=== PATIENT | male | born 1930 | race Caucasian/White ===

== ENCOUNTER 2019-11-14 12:45 | Inpatient (IN) ==
--- OUTSIDE RECORDS SUMMARY | 2019-11-14 12:48 | External Medical Summary | Continuity of Care Document ---
:1930 Author Name Annika Knutson, Provider Address Unavailable Unavailable , Care Team Providers Name Role Phone Unavailable Unavailable Unavailable YANET ALANIZ Unavailable Unavailable Unavailable Unavailable Unavailable Problems Diverticulosis of colon (562.10) (K57.30) COPD (chronic obstructive pulmonary disease) (496) (J44.9) Colostomy Care Requirement Allergies and Adverse Reactions No Known Drug Allergies (Allergy) Medications Aspirin 81 MG TABS; TAKE 1 TABLET DAILY. , M.D. Start: 30-Aug-2015 Refills: 0 Tamsulosin HCl - 0.4 MG Oral Capsule; TAKE 1 CAPSULE Bedtime , M.D. Start: 30-Aug-2015 Quantity: 30 Refills: 11 Propranolol HCl ER 60 MG Oral Capsule Extended Release 24 Ho ur; daily , M.D. Start: 30-Aug-2015 Refills: 0 Pantoprazole Sodium 40 MG Oral Tablet Delayed Release; TAKE 1 TABLET DAILY. , M.D. Start: 30-Aug-2015 Refills: 0 Allopurinol 100 MG Oral Tablet; one pill every other day , M .D. Start: 30-Aug-2015 Refills: 0 Vitamin D 1000 UNIT TABS; TAKE 1 TABLET DAILY. , M.D. Start: 30-Aug-2015 Refills: 0 Vitamin B12 100 MCG Oral Tablet; TAKE 1 TABLET DAILY DIRE CTED. , M.D. Start: 30-Aug-2015 Refills: 0 Proventil HFA 108 (90 Base) MCG/ACT Inha lation Aerosol Solution; INHALE 1 PUFF EVERY 6 HOURS , M.D. Start: 30-Aug-2015 Refills: 0 Asmanex HFA 100 MCG/ACT Inhalation Aerosol; One puff two tabitha es a day , M.D. Start: 30-Aug-2015 Refills: 0 Procedures Colostomy Care Requirement History of Neuroplasty Decompression Median Status: Completed Nerve At Carpal Tunnel History of Cataract Surgery Status: Comp leted History of Arthroscopy Knee Left Status: Completed History of Laparoscopy (Diagnostic) Stat us: Completed 21-Oct-2015 0:00 History of Laparoscopic Lysis Of Intestinal Status: Completed 21-Oct-2015 0:00 Adhesions History of Colostomy Closure Status: Com pleted 21-Oct-2015 0:00 History of Partial Colectomy Status: Com pleted 21-Oct-2015 0:00 History of Colon Surgery Status: Complet ed Immunizations Immunizations not documented Family History Sister Family history of diabetes mellitus (V18.0) (Z83.3) Status: Active Social History - Smoking Status Former smoker Plan of Treatment Planned Observations Planned Goals not documented Results No Known Results Results not documented
--- OUTSIDE RECORDS SUMMARY | 2019-11-14 12:49 | External Medical Summary | Continuity of Care Document ---
:1930 Author Name Annika Knutson, Provider Address Unavailable Unavailable , Care Team Providers Name Role Phone Unavailable Unavailable Unavailable YANET ALANIZ Unavailable Unavailable Unavailable Unavailable Unavailable Problems Colostomy Care Requirement COPD (chronic obstructive pulmonary disease) (496) (J44.9) Diverticulosis of colon (562.10) (K57.30) Allergies and Adverse Reactions No Known Drug Allergies (Allergy) Medications Proventil HFA 108 (90 Base) MCG/ACT Inha lation Aerosol Solution; INHALE 1 PUFF EVERY 6 HOURS , M.D. Start: 30-Aug-2015 Refills: 0 Asmanex HFA 100 MCG/ACT Inhalation Aerosol; One puff two tabitha es a day , M.D. Start: 30-Aug-2015 Refills: 0 Allopurinol 100 MG Oral Tablet; one pill every other day , M .D. Start: 30-Aug-2015 Refills: 0 Pantoprazole Sodium 40 MG Oral Tablet Delayed Release; TAKE 1 TABLET DAILY. , M.D. Start: 30-Aug-2015 Refills: 0 Propranolol HCl ER 60 MG Oral Capsule Extended Release 24 Ho ur; daily , M.D. Start: 30-Aug-2015 Refills: 0 Tamsulosin HCl - 0.4 MG Oral Capsule; TAKE 1 CAPSULE Bedtime , M.D. Start: 30-Aug-2015 Quantity: 30 Refills: 11 Aspirin 81 MG TABS; TAKE 1 TABLET DAILY. , M.D. Start: 30-Aug-2015 Refills: 0 Vitamin B12 100 MCG Oral Tablet; TAKE 1 TABLET DAILY DIRE CTED. , M.D. Start: 30-Aug-2015 Refills: 0 Vitamin D 1000 UNIT TABS; TAKE 1 TABLET DAILY. , M.D. Start: 30-Aug-2015 Refills: 0 Procedures [...]
[2019-11-14 13:14] LABS: Basophils # (auto) 0.02 K/uL (0-0.2); Basophils % (auto) 0.2 %; Eosinophils # (auto) 0.14 K/uL (0-0.5); Eosinophils % (auto) 1.6 %; Hematocrit (blood only) 41.9 % (42-52); Hemoglobin 13.7 g/dL (14.0-18.0); Immature Granulocytes # (auto) 0.03 K/uL (0.00-0.02); Immature Granulocytes % (auto) 0.3 %; Lymphocytes # (auto) 2.01 K/uL (1.2-3.4); Lymphocytes % (auto) 23.4 %; Mean Corpuscular Hemoglobin 31.8 pg (25-34); Mean Corpuscular Hgb Conc 32.7 g/dL (32-36); Mean Corpuscular Volume 97.2 fL (80-100); Mean Platelet Volume 10.2 fL (7.4-10.4); Monocytes % (auto) 10.5 %; Neutrophils # (auto) 5.48 K/uL (1.4-6.5); Platelet Count 204 K/uL (130-400); RDW Standard Deviation 50.1 fL (36.4-46.3); Red Blood Count 4.31 M/uL (4.7-6.1); White Blood Count 8.58 K/uL (4.8-10.8)
--- NOTE | 2019-11-14 13:14 | XRay Report ---
XR chest 1V portable CLINICAL HISTORY: bradycardia COMPARISON STUDY: 11/14/2019 FINDINGS: The bones soft tissues and hemidiaphragms are normal. The cardiomediastinal silhouette is n ormal. The lungs are clear. The pulmonary vasculature is normal. IMPRESSION: Negative chest. ACT 112: Negative or not required by law. The above report was generated using voice recognition software. It may contain grammatical, syntax or spelling errors. Electronically signed by: Gordo Huerta M.D. 11/14/2019 1:13 PM
[2019-11-14 13:24] LABS: Partial Thromboplastin Ratio 0.9; Partial Thromboplastin Time 25.5 Seconds (21.0-31.0); Prothrombin Time 10.3 Seconds (9.0-12.0)
[2019-11-14 13:34] LABS: Alanine Aminotransferase 21 U/L (12-78); Albumin Level 3.6 gm/dl (3.4-5.0); Aspartate Aminotransferase 17 U/L (15-37); BUN Creatinine Ratio 16.1 (10-20); Blood Urea Nitrogen 24 mg/dl (7-18); Calcium 9.2 mg/dl (8.5-10.1); Carbon Dioxide 26 mmol/L (21-32); Chloride 107 mmol/L (98-107); Creatinine Clr Calc Pharmacy 36.8 ml/min; Est GFR (African American) 47.8; Est GFR (Non-African American) 41.3; Glucose 90 mg/dl (70-99); Potassium 4.5 mmol/L (3.5-5.1); Sodium 136 mmol/L (136-145)
[2019-11-14 13:45] LABS: Albumin Globulin Ratio 1.1 (0.9-2); Alkaline Phosphatase 100 U/L (45-117); Bilirubin,Total 0.6 mg/dl (0.2-1); Globulin 3.3 gm/dl (2.5-4.0); Total Protein 6.9 gm/dl (6.4-8.2); Troponin I < 0.015 ng/ml (0-0.045)
--- NOTE | 2019-11-14 14:00 | History & Physical Report ---
Date of Service November 14, 2019 Assessment & Plan (1) Second degree AV block: Stat echo has been ordered and is currently pending. Labs including hemoglobin and coagulation panel have come back and are stable. Per history, it sounds as if the patient may have been in atrial ventricular blo ck with significant bradycardia for at least a month. Patient has already been seen by Dr. Calixto of EP as an outpatient, and was referred to the emergency room, dual-chamber permanent pacemaker tentatively planned today pending echo results. (2) Hypothyroidism: Patient is not on thyroid supplementation as an outpatient. His TSH is mildly elevated at 7.59, free T4 currently pending, low-dose thyroid supplementation may be necessary. I do not think that hypothyroidism is the cause of his AV block, I think he has underlying conduction system disease, I do not think his AV block is a process that can be corrected with treating his relatively mild elevation in TSH. (3) HTN (hypertension): Was hypertensive on arrival to the emergency department, blood pressure has improved to over range of 168/64. He is on propranolol as an outpatient perhaps related to a history of essential tremor but I am not sure. After pacemaker is in place, will determine best next medication, perhaps to be placed back on his previous propranolol dose, versus perhaps adding amlodipine. DVT prophylaxis: Pacemaker today, will readdress pharmacologic DVT prophylaxis if necessary on 11/15/2019. Dr Spicer will be rounding for out service on 11/15/19. History of Present Illness Primary Care Provider: Kalen Bueno Allyssa Baeza is an 89 year old male with a past medical history of hypertension, COPD, and essential tremor who presented to the outpatient cardiology clinic at [facility] for cardiology consultation due to bradycardia. He states that he began to feel lightheaded and dizzy a few mo nths ago. He has had episodes of feeling as if he may pass out, but has not had any david syncope. He was recently seen by his primary care provider, Dr. Bueno and was found to be bradycardic. His dose of propranolol was apparently reduced from 60 mg daily to 40 mg daily but he had ongoing symptoms. Last week his primary care provider reduce his propranolol to 20 mg daily. Today he presented in the cardiology clinic and was seen by Dr. Tucker Ocampo and was found to have second-degree AV block with 2-1 AV conduction, and a ventricular rate of 33 bpm. The patient denies any history of coronary heart disease. No past stroke. Allergies Allergy/AdvReac Type Severity Reaction Status Date / Time hydrocodone AdvReac Unknown DIZZINESS Verified 11/14/19 13:11 Home Medications Home Medications Medication Instructions Recorded Confirmed Type allopurinol 100 mg PO Q2D 11/14/19 11/14/19 History aspirin [Aspir-81] 81 mg PO QAM 11/14/19 11/14/19 History cholecalciferol (vitamin D3) 1,000 unit PO QAM 11/14/19 11/14/19 History [Vitamin D3] cyanocobalamin (vitamin B-12) 50 mcg PO QAM 11/14/19 11/14/19 History [Vitamin B-12] ipratropium-albuterol [Combivent 1 puff INHALATION QID 11/14/19 11/14/19 History Respimat] mometasone [Asmanex Twisthaler] 1 inh INHALATION BID 11/14/19 11/14/19 History pantoprazole 40 mg PO QAM 11/14/19 11/14/19 History propranolol 20 mg PO QAM 11/14/19 11/14/19 History tamsulosin 0.4 mg PO QAM 11/14/19 11/14/19 History vit C,H-Iz-bnzki-lutein-zeaxan 1 tab PO BID 11/14/19 11/14/19 History [PreserVision AREDS-2] Past Med/Surg History Medical History (Updated 11/14/19 @ 13:56 by Davi Isabel DO) COPD (chronic obstructive pulmonary disease) Gout HTN (hypertension) Surgical History (Updated 11/14/19 @ 13:50 by Davi Isabel DO) Status post cholecystectomy Social History (Updated 11/14/19 @ 13:51 by Daiv Isabel DO) Preferred Language: Vietnamese marital status: / Feels Safe at Home: Yes Smoking Status: Never smoker Review of Systems Review of Systems: All systems reviewed & are unremarkable except as noted in HPI & below Cardiovascular: as per Subjective / HPI, + dyspnea on exertion and + syncope (near syncope); no chest pain at rest and no edema Physical Exam Physical Exam: Temp Pulse Resp BP Pulse Ox 36.4 C L 30 L 10 L 168/64 H 98 11/14/19 12:49 11/14/19 13:30 11/14/19 13:20 11/14/19 13:20 11/14/19 13:30 Constitutional: WD/WN, vitals as above Respiratory: normal respiratory effort, lungs clear to auscultation Cardiovascular: Rate/Rhythm: + bradycardic Extremities: no edema Gastrointestinal (Abdomen): normal bowel sounds, soft, nontender, no hepatosplenomegaly Skin: no rashes, warm and dry Neurologic: PERRL, EOMI, accommodation nl, no face palsy, no dysarthria Results & Data Vital Signs (Past 12 Hours) Vital Signs Temp Pulse Pulse Resp BP BP Pulse Ox 11/14/19 13:30 30 L 98 11/14/19 13:20 31 L 10 L 168/64 H 97 11/14/19 13:19 31 L 168/64 H 98 11/14/19 13:15 43 L 93 11/14/19 13:05 98 11/14/19 13:04 33 L 92 11/14/19 13:03 32 L 12 193/76 H 92 11/14/19 13:02 33 L 193/76 H 11/14/19 12:49 36.4 C L 34 L 71 H 98 Laboratory Results Temp Pulse Resp BP Pulse Ox 36.4 C L 30 L 10 L 168/64 H 98 11/14/19 12:49 11/14/19 13:30 11/14/19 13:20 11/14/19 13:20 11/14/19 13:30 Cardiac Enzymes 11/14/19 Range/Units 13:05 AST 17 (15-37) U/L Troponin I < 0.015 (0-0.045) ng/ml Coagulation 11/14/19 Range/Units 13:05 PT 10.3 (9.0-12.0) Seconds APTT 25.5 (21.0-31.0) Seconds CBC 11/14/19 Range/Units 13:05 WBC 8.58 (4.8-10.8) K/uL RBC 4.31 L (4.7-6.1) M/uL Hgb 13.7 L (14.0-18.0) g/dL Hct 41.9 L (42-52) % Plt Count 204 (130-400) K/uL Neut # (Auto) 5.48 (1.4-6.5) K/uL Lymph # (Auto) 2.01 (1.2-3.4) K/uL [place] # (Auto) 0.90 H (0.11-0.59) K/uL Eos # (Auto) 0.14 (0-0.5) K/uL Baso # (Auto) 0.02 (0-0.2) K/uL Comprehensive Metabolic Panel 11/14/19 Range/Units 13:05 Sodium 136 (136-145) mmol/L Potassium 4.5 (3.5-5.1) mmol/L Chloride 107 (98-107) mmol/L Carbon Dioxide 26 (21-32) mmol/L BUN 24 H (7-18) mg/dl Creatinine 1.50 H (0.6-1.4) mg/dl Glucose 90 (70-99) mg/dl Calcium 9.2 (8.5-10.1) mg/dl AST 17 (15-37) U/L ALT 21 (12-78) U/L Alkaline Phosphatase 100 (45-117) U/L Total Protein 6.9 (6.4-8.2) gm/dl Albumin 3.6 (3.4-5.0) gm/dl Intake and Output 11/13/19 11/14/19 11/14/19 22:59 06:59 14:59 Other: Weight 75 kg Patient Weight 11/15/19 06:59 Weight 75 kg
[2019-11-14 14:07] LABS: T4 Free Thyroxine 1.14 ng/dl (0.8-1.6)
[2019-11-14] MEDS ORDERED: allopurinoL 100 MG TAB PO SCH (14:15)
[2019-11-14] MEDS ORDERED: LIDOCAINE HCL 1% 20 ML VIAL ONE (14:47)
[2019-11-14] MEDS ORDERED: BACITRACIN INJ 50,000 UNIT VIAL ONE (14:48)
[2019-11-14] MEDS ORDERED: CEFAZOLIN 250 MG/ML 1 GM VIAL ONE ×2 (14:48→15:11)
[2019-11-14] MEDS ORDERED: fentaNYL citrate 100 MCG/2 ML VIAL ONE (14:48)
[2019-11-14] MEDS ORDERED: BUPIVACAINE 0.25% 30 ML VIAL ONE (14:48)
[2019-11-14] MEDS ORDERED: MIDAZOLAM HCL 5 MG/ML 1 ML VIAL ONE (14:48)
--- NOTE | 2019-11-14 14:49 | History & Physical Report ---
Date of Service November 14, 2019 Assessment & Plan (1) Second degree AV block: pt for permanent pacemaker rediscussed the procedure and potential risks and consents obtained (2) Hypothyroidism: (3) HTN (hypertension): History of Present Illness Chief Complaint: sob Primary Care Provider: Kalen Bueno pt with progressive SOB and HERZOG a/w fatigue and dizziness with near syncope worsening for 4 months; worse with exertion; frequency daily. Pt seen in the office today and referred to ED and EP lab for ppm Allergies Allergy/AdvReac Type Severity Reaction Status Date / Time hydrocodone AdvReac Unknown DIZZINESS Verified 11/14/19 13:11 Home Medications Home Medications Medication Instructions Recorded Confirmed Type allopurinol 100 mg PO Q2D 11/14/19 11/14/19 History aspirin [Aspir-81] 81 mg PO QAM 11/14/19 11/14/19 History cholecalciferol (vitamin D3) 1,000 unit PO QAM 11/14/19 11/14/19 History [Vitamin D3] cyanocobalamin (vitamin B-12) 50 mcg PO QAM 11/14/19 11/14/19 History [Vitamin B-12] ipratropium-albuterol [Combivent 1 puff INHALATION QID 11/14/19 11/14/19 History Respimat] mometasone [Asmanex Twisthaler] 1 inh INHALATION BID 11/14/19 11/14/19 History pantoprazole 40 mg PO QAM 11/14/19 11/14/19 History propranolol 20 mg PO QAM 11/14/19 11/14/19 History tamsulosin 0.4 mg PO QAM 11/14/19 11/14/19 History vit C,E-Cu-zkdgw-lutein-zeaxan 1 tab PO BID 11/14/19 11/14/19 History [PreserVision AREDS-2] Past Med/Surg History Medical History COPD (chronic obstructive pulmonary disease) Gout HTN (hypertension) Surgical History Status post cholecystectomy Family History Father No problems noted. Social History Preferred Language: Vietnamese marital status: / Feels Safe at Home: Yes Smoking Status: Never smoker Hx Substance Use: No Review of Systems All systems reviewed & are unremarkable except as noted in HPI & below as per Subjective / HPI, + dyspnea on exertion and + syncope (near syncope); no chest pain at rest and no edema Physical Exam Physical Exam: aaox3, NAD NC/AT, EOMI Supple No JVD bradycardic S1/S2, No murmur CTA b/l no w/r/r soft nt/nd no LE edema b/l skin intact no focal deficits Results & Data Vital Signs (Past 12 Hours) Vital Signs Temp Pulse Pulse Resp BP BP Pulse Ox 11/14/19 13:55 30 L 11 L 159/61 H 97 11/14/19 13:30 30 L 98 11/14/19 13:20 31 L 10 L 168/64 H 97 11/14/19 13:19 31 L 168/64 H 98 11/14/19 13:15 43 L 93 11/14/19 13:05 98 11/14/19 13:04 33 L 92 11/14/19 13:03 32 L 12 193/76 H 92 11/14/19 13:02 33 L 193/76 H 11/14/19 12:49 36.4 C L 34 L 71 H 98 ec:1 AV block 33bpm Echo preliminary; normal EF mild to mod MR
--- NOTE | 2019-11-14 14:49 | Pre Anesthesia Assessment ---
Date of Service November 14, 2019 Pre Sedation Assessment Vital Signs Temp Pulse Pulse Resp BP BP Pulse Ox 11/14/19 13:55 30 L 11 L 159/61 H 97 11/14/19 13:30 30 L 98 11/14/19 13:20 31 L 10 L 168/64 H 97 11/14/19 13:19 31 L 168/64 H 98 11/14/19 13:15 43 L 93 11/14/19 13:05 98 11/14/19 13:04 33 L 92 11/14/19 13:03 32 L 12 193/76 H 92 11/14/19 13:02 33 L 193/76 H 11/14/19 12:49 36.4 C L 34 L 71 H 98 Cardiovascular + bradycardic Respiratory normal respiratory effort, lungs clear to auscultation Pre-Sedation Airway Assessment Smoking Status: Never smoker Hx Sleep Apnea: No Short, Thick Neck: No Oral Cavity: + Dentures Mallampati Class: I ASA: ASA4 NPO Status Date of Last Intake of Fluids: 11/14/19 Time of Last Intake of Fluids: 07:00 Date of Last Intake of Solid Food: 11/14/19 Time of Last Intake of Solid Foods: 07:00 Procedure Planning Contraindications for Sedation: none Current Medications Reviewed: Yes Notes The planned sedation has been discussed with the patient. Informed Consent was obtained. I have identified the patient, determined the appropriateness of sedation and have assessed the patient immediately prior to the procedure. All medicine(s) and interventions are by my order.
[2019-11-14] MEDS ORDERED: HydrALAZINE HCL 20 MG/ML VIAL ONE (15:28)
[2019-11-14] MEDS ORDERED: ACETAMINOPHEN 325 MG TAB PO PRN (16:07)
--- NOTE | 2019-11-14 16:51 | Electrocardiogram Report ---
Test Reason : Blood Pressure : / mmHG Vent. Rate : 033 BPM Atrial Rate : 066 BPM P-R Int : 212 ms QRS Dur : 102 ms QT Int : 510 ms P-R-T Axes : 086 021 082 degrees QTc Int : 377 ms Sinus rhythm with 2:1 A-V conduction Possible Left atrial enlargement Low voltage QRS Nonspecific ST abnormality Abnormal ECG No previous ECGs available Confirmed by Toyn Pérez ([id number]) on 11/14/2019 4:50:58 PM Referred By: ED Confirmed By:Tony Pérez
[2019-11-14] MEDS: IPRATROPIUM BROMIDE/ALBUTEROL respimat INH INH SCH ×2 (17:40→20:33)
[2019-11-14] MEDS: ACETAMINOPHEN 325 MG TAB PO PRN (20:32)
[2019-11-14] MEDS: CEROVITE ADV FORMULA TAB PO SCH (20:33)
[2019-11-14] MEDS: MOMETASONE FUROATE 14 PUFF/1 INHALER INH SCH (20:33)
[2019-11-14] MEDS: PROPRANOLOL HCL 20 MG TAB PO SCH (20:34)
[2019-11-15] MEDS: ACETAMINOPHEN 325 MG TAB PO PRN ×2 (02:16→10:50)
--- NOTE | 2019-11-15 07:14 | XRay Report ---
XR chest 2V PA/lateral HISTORY: s/p pacer insertion COMPARISON: Chest 11/14/2019. FINDINGS: Status post left-sided dual-chamber pacemaker. The leads appear intact. No pneumothorax. No pleural effusions. Emphysema. Nodular densities within the lower lung zones are consistent with nipp le shadows. The lungs are otherwise clear. The heart is normal in size. IMPRESSION: Status post left-sided pacemaker. No pneumothorax. ACT 112: Negative or not required by law. Electronically signed by: James Salguero M.D. 11/15/2019 7:13 AM
[2019-11-15] MEDS: PROPRANOLOL HCL 20 MG TAB PO SCH (08:13)
[2019-11-15] MEDS: CEROVITE ADV FORMULA TAB PO SCH (08:14)
[2019-11-15] MEDS: MOMETASONE FUROATE 14 PUFF/1 INHALER INH SCH (08:15)
[2019-11-15] MEDS: IPRATROPIUM BROMIDE/ALBUTEROL respimat INH INH SCH (08:15)
[2019-11-15] MEDS ORDERED: TAMSULOSIN HCL 0.4 MG CAP PO SCH (09:00)
[2019-11-15] MEDS ORDERED: PANTOprazole 40 MG TAB PO SCH (09:00)
[2019-11-15] MEDS ORDERED: CHOLECALCIFEROL 1,000 UNITS TAB PO SCH (09:00)
[2019-11-15] MEDS ORDERED: CYANOCOBALAMIN (VITAMIN B-12) 100 MCG TABLET PO SCH (09:00)
[2019-11-15] MEDS ORDERED: ASPIRIN 81 MG ECTAB PO SCH (09:00)
[2019-11-15] MEDS ORDERED: AMLODIPINE BESYLATE 5 MG TAB PO SCH (10:30)
--- NOTE | 2019-11-15 10:47 | Cardiology Progress Note ---
Date of Service November 15, 2019 Assessment & Plan (1) Second degree AV block: (2) Pacemaker: (3) HTN (hypertension): (4) TSH elevation: Pacemaker implanted 11/14/2019 without complication. Patient remains hypertensive. Recommend addition of amlodipine 5 mg daily. Continue propranolol 20 mg twice daily. Elevated TSH noted with normal free T4. Will not add thyroid supplementation at this time. Follow-up with primary care physician for further recommendations. Patient will require follow-up TFTs in 1 month. Postprocedural restrictions discussed with patient and his son at length. Wound check scheduled at [facility]. Patient will be discharged home today. Subjective Patient seen and examined the bedside. Denies chest pain or shortness of breath. Patient reports dyspnea with minimal exertion over the past 8 weeks. Denies lightheadedness, dizziness, syncope, or near syncope. Dual-chamber pacemaker implanted 11/14/2019 without complication. Propranolol restarted. Blood pressure remains elevated. Telemetry demonstrates AV sequential pacemaker. Patient requesting medications through [facility] in [place]. [facility] Review of Systems Review of Systems: All systems reviewed & are unremarkable except as noted in HPI & below Physical Exam Constitutional: well developed and + thin Respiratory: normal respiratory effort, lungs clear to auscultation Cardiovascular: Rate/Rhythm: regular rate and regular rhythm Heart Sounds: normal S1 and normal S2; no murmur Gastrointestinal (Abdomen): Inspection/Auscultation: abdomen normal to inspection and normal bowel sounds; abdomen not distended Percussion/Palpation: abdomen soft; abdomen nontender, no guarding and abdomen not rigid Musculoskeletal: no cyanosis or clubbing, extremities motor strength 5/5 Skin: no rashes, warm and dry Trauma: no hematoma Pacemaker dressing clean, dry, intact Neurologic: PERRL, EOMI, accommodation nl, no face palsy, no dysarthria Psychiatric: A+Ox3, euthymic affect Results & Data Vital Signs (Past 12 Hours) Vital Signs Temp Pulse Pulse Resp BP Pulse Ox 11/15/19 07:28 36.7 C 92 H 18 170/81 H 94 11/15/19 02:42 36.6 C 60 18 157/76 H 94 11/15/19 00:38 65 11/14/19 22:49 36.7 C 63 20 173/80 H 96 (1) HTN (hypertension) Hypertension type: essential hypertension Qualified Code(s): I10 - Essential (primary) hypertension
--- NOTE | 2019-11-15 15:03 | Discharge Summary ---
Date of Service November 15, 2019 Admission HPI Per Admitting Provider pt with progressive SOB and HERZOG a/w fatigue and dizziness with near syncope worsening for 4 months; worse with exertion; frequency daily. Pt seen in the office today and referred to ED and EP lab for ppm Principal Diagnosis Symptomatic second-degree AV block status post permanent pacemaker implantation. Discharge Data Allergies Allergy/AdvReac Type Severity Reaction Status Date / Time hydrocodone AdvReac Unknown DIZZINESS Verified 11/14/19 13:11 Procedures Performed Operation Date: 11/14/19 15:00 Actual Procedures p Pacer with A/V Leads (Dual) - Codi Calixto DO Ordered Studies 11/14/19 14:59 CL Cath Imgs for PACS use only Stat Hospital Course (1) Second degree AV block: pt for permanent pacemaker rediscussed the procedure and potential risks and consents obtained (2) Pacemaker: (3) HTN (hypertension): (4) TSH elevation: Pacemaker implanted 11/14/2019 without complication. Patient remains hypertensive. Recommend addition of amlodipine 5 mg daily. Continue propranolol 20 mg twice daily. Elevated TSH noted with normal free T4. Will not add thyroid supplementation at this time. Follow-up with primary care physician for further recommendations. Patient will require follow-up TFTs in 1 month. Postprocedural restrictions discussed with patient and his son at length. Wound check scheduled at [facility]. Patient will be discharged home today. Total Time Total Time Spent Total Time Spent (In Minutes): 30 Total Time Includes: Examination of the Patient, Discharge Planning and Medication Reconciliation Discharge Plan Discharge Items Patient Disposition: Home - Self-Care Reason For Visit: SYMPTOMATIC BRADYCARDIA Discharge Diagnosis: Second-degree AV block status post permanent pacemaker implantation Condition on Discharge: Good Activity: As commented below Activity Comment: do not lift your left elbow over the left shoulder for 1 month Lifting: No more than 10 pounds Lifting Comment: do not lift more than 10 pounds with the left arm for 2 weeks Bathing: Keep incision dry Bathing Comment: keep dressing on & dry until your wound check next week Non-emergency contact: Primary Care Provider and Surgical Consultant Call non-emergency contact if: you have any medication questions, your pain is not controlled, your pain is unusual for you, your pain is concerning for you, you have a fever, your wound has increased redness, your wound has increased drainage and your wound pain has increased Follow-up/Referrals: Kalen Bueno [Primary Care Provider] - Diet: Low Sodium (2gm) Addtl Attending Provider Instructions: device and wound check at [facility] on 11/20/2019 at 12:45pm If you notice any concerns or swelling at the incision site call Dr. Calixto's office immediately Pending Studies at Discharge: Yes Studies:: Wound check, pacemaker interrogation Stand-Alone Forms: My [facility], Smoking Cessation Medications and DC Order Prescriptions: New amlodipine [Norvasc] 5 mg Tablet 5 mg PO QAM Qty: 34 RF: 4 propranolol 20 mg Tablet 20 mg PO BID Qty: 60 RF: 4 Continued allopurinol 100 mg Tablet 100 mg PO Q2D RF: 0 aspirin [Aspir-81] 81 mg Tablet,Delayed Release (Dr/Ec) 81 mg PO QAM RF: 0 Vitamin B-12 50 mcg Tablet 50 mcg PO QAM RF: 0 tamsulosin 0.4 mg Capsule 0.4 mg PO QAM RF: 0 pantoprazole 40 mg Tablet,Delayed Release (Dr/Ec) 40 mg PO QAM RF: 0 propranolol 20 mg tablet 20 mg PO QAM RF: 0 Asmanex Twisthaler 220 mcg/ actuation (14) Aerosol Powdr Breath Activated 1 inh INHALATION BID RF: 0 cholecalciferol (vitamin D3) [Vitamin D3] 25 mcg (1,000 unit) Tablet 1,000 unit PO QAM RF: 0 PreserVision AREDS-2 [id number] ad-flgx-as-mg Capsule 1 tab PO BID RF: 0 Combivent Respimat 20-100 mcg/actuation Mist 1 puff INHALATION QID RF: 0 Discharge Orders: Discharge Order (Routine); Ordered 11/15/19 Ordered By: Antelmo Spicer Admission Data Admit Date/Time: 11/14/19 12:54 Attending Provider: Davi Isabel Admit Provider: Davi Isabel Primary Care Provider: Kalen Bueno Other Interventions: Discharge Summary Assessment (RN) Last Done: 11/15/19 10:59 DC Date/Time DO NOT enter until pt leaves facility: 11/15/19 12:06
--- NOTE | 2019-11-16 05:50 | Electrocardiogram Report ---
Test Reason : Blood Pressure : / mmHG Vent. Rate : 064 BPM Atrial Rate : 064 BPM P-R Int : 196 ms QRS Dur : 154 ms QT Int : 474 ms P-R-T Axes : 084 -76 091 degrees QTc Int : 489 ms Atrial-sensed ventricular-paced rhythm Abnormal ECG When compared with ECG of 14-NOV-2019 12:58, Ventricular pacing is now present Vent. rate has increased BY 31 BPM Confirmed by Mahin Brooks ([id number]) on 11/16/2019 5:49:54 AM Referred By: Codi Calixto Confirmed By:Mahin Brooks
--- NOTE | 2019-11-18 12:59 | Operative Report ---
DATE OF OPERATION: 11/14/2019 PREOPERATIVE DIAGNOSIS: High-degree atrioventricular block. POSTOPERATIVE DIAGNOSIS: High-degree atrioventricular block. PROCEDURE: Dual chamber rate responsive permanent pacemaker under fluoroscopic guidance. SURGEON: Codi Calixto DO ASSISTANTS: None. ANESTHESIA: Monitored conscious sedation administered under my supervision by Lorraine Kruse. Start time 15:11, end time 1602. Total of 3 mg of Versed and 75 mcg of fentanyl. IV FLUIDS: 25 mL. ANTIBIOTICS: Two grams of Ancef. BLOOD LOSS: 20 mL. URINE OUTPUT: Not applicable. SPECIMENS: None. FINDINGS: See below. DRAINS: None. INDICATIONS: This is an 89-year-old gentleman who has a past medical history of hypertension, hypothyroidism, gout, COPD and essential tremors. He is found to have symptomatic high-degree AV block and was recommended a pacemaker. CONSENT: Consent was obtained prior to the patient going into electrophysiology lab. The patient was informed of the risks, benefits and alternative procedure. Risks include but not limited to sudden cardiac , cardiac arrhythmias, cerebrovascular accident, myocardial infarction, injury to the blood vessels, chamber of the heart, lung, bleeding, and infection. The patient understood these risks and agreed to the procedure as planned. Informed consent was obtained. DESCRIPTION OF THE PROCEDURE: The patient was brought into electrophysiology lab in a fasting state. He was connected to continuous potline monitor. A timeout was performed to ensure patient identity and procedure correctly. The patient was prepped and draped over the left infraclavicular space in normal surgical standard fashion. Monitored conscious sedation was administered under my supervision for patient's comfort level. Murray precautions maintained throughout the procedure. A 20 mL of 1% lidocaine, bupivacaine mixture were given in the left deltopectoral groove. Incision was made in left deltopectoral groove. Blunt dissection was performed down to identify cephalic vein. Cephalic vein was identified and isolated using 0 silk ties. The vein was nicked with 11 blade and a guidewire was inserted without any resistance. An 8-Malaysian sheath was inserted over the guidewire without any resistance. Dilator was removed and a second guidewire was inserted through the 8-Malaysian sheath to allow for retained venous access. Sheath was removed, flushed, dilator reinserted over and then was reinserted along the guidewire. The guidewire and dilator removed. The right ventricular lead was then advanced into right ventricle and positioned in intraventricular apex under fluoroscopic guidance. There was adequate pacing and sensing thresholds and no diaphragmatic stimulation with high output pacing. The 8-Malaysian sheath was peeled away and lead was fixated to pectoralis muscle using 0 silk suture. A second 8-Malaysian sheath was inserted over the retained guidewire without any resistance. Guidewire and dilator removed. The right atrial lead was then advanced into right atrium and positioned interatrial appendage under fluoroscopic guidance. There was adequate pacing and sensing thresholds and no diaphragmatic stimulation with high output pacing. The 8-Malaysian sheath was peeled away and lead was fixated to pectoralis muscle using 0 silk suture. A pursestring using 2-0 Vicryl was placed around the venous puncture site secondary to some backbleeding. Then using blunt dissection over the pectoralis muscle, a pacemaker pocket was created. Pocket was flushed with copious amounts of bacitracin saline wash and inspected for hemostasis. Pulse generator was then attached to the leads, making sure that the pins were in appropriate position, passed set screw and set screws were all tightened. Pulse generator was then placed in the pocket, making sure that the leads were lying flat beneath the device. A stay stitch using 0 silk suture was used to secure this pectoralis muscle. The incision was then closed in 3-layer fashion with 2-0 Vicryl interrupted suture followed by 3-0 Vicryl interrupted suture followed by a 4-0 Monocryl running stitch. Dermabond was applied followed then by Tegaderm and Remy. EQUIPMENT: 1. Pulse generator is a [employer] Kerri XT DR NED Guerrero [id number], serial number [id number]. 2. Right atrial lead Medtronic 5076-52 cm, serial number [id number]. 3. Right ventricular lead, Medtronic 5076-58 cm, serial number [id number]. INTRAOPERATIVE TESTIN. Right atrial lead: P-wave 3.8 millivolts, impedance 675 ohms, threshold 0.5 volts at 0.4 milliseconds. 2. Right ventricular lead: R-wave 10 millivolts, impedance 1100 ohms, threshold 0.5 volts at 0.5 milliseconds. FINAL PARAMETERS THROUGH THE DEVICE: 1. Right atrial lead: P-wave 2.8 millivolts, impedance 608 ohms, threshold 0.5 volts at 0.4 milliseconds. 2. Right ventricular lead: No R-waves as patient has now complete heart block and dependent on pacemaker, impedance 1140 ohms, threshold 0.5 volts at 0.5 milliseconds. FINAL PARAMETERS: DDD 60/120. Right atrial amplitude 3.5 volts, pulse width 0.4 milliseconds, sensitivity 0.3 millivolts. Right ventricular amplitude 5 volts, pulse width 0.4 milliseconds, sensitivity 1.2 millivolts. IMPRESSION: Successful dual chamber rate responsive permanent pacemaker under fluoroscopic guidance secondary to high degree AV block. PLAN: Monitor patient overnight, 12-lead ECG, chest x-ray. He cannot lift the left elbow over left shoulder for 1 month. He cannot lift more than 10 pounds with the left arm for 2 weeks. He should leave the dressing on and the site dry until his wound check next week in [facility]. I attest to the content of the Intraoperative Record and any orders documented therein. Any exception s are noted below.
== END 2019-11-15 12:06 | disposition home or self-care (01) | DRG 244 ==
LOC: ED 12:45 → CC 12:49 → 2S 12:54